=== PATIENT | male | born 1970 | race Caucasian/White ===

== ENCOUNTER 2024-09-13 20:53 | Emergency (ER) | payer BC, SELFPAY ==
[2024-09-13] VITALS (7 sets, daily range): BP systolic 139–152; BP diastolic 83–89; PULSE 54–66; RESP 28; TEMP 35.8; O2SAT 92–100; BMI 29.2
--- OUTSIDE RECORDS SUMMARY | 2024-09-13 20:55 | XMS_ITS | Clinical Summary ---
Author Organization [employer] [facility] [employer] [facility] Address [place], [place] [address] Care Team Providers Care Staff Interpreter Name Role Phone Jose Sanchez MD Primary Care Provider Allergies Active Allergy Reactions Criticality Noted Date Comments Lisinopril Cough 02/28/2020 Varicella-Zoster [id number] (Pf) Other - Describe In Comment Field 08/19/2022 Sick for two days Medications multivitamin (MVI) tablet Take 1 tablet by mouth once daily. 0 07/29/2020 Active nitroglycerin (NITROSTAT) 0.4 mg sublingual tabletIndicatio ns:ASHD (arteriosclerot ic heart disease) Place 1 tablet under the tongue every 5 minutes if needed. 25 tablet. 11 07/29/2020 Active aspirin chewable 81 mg chewable tabletIndicatio ns:ASHD (arteriosclerot ic heart disease) CHEW 1 TABLET (81 MG) BY MOUTH ONCE DAILY. 90 Tablet 3 07/29/2023 Active atorvastatin (LIPITOR) 80 mg tabletIndicatio ns:ASHD (arteriosclerot ic heart disease) Take 1 Tablet (80 mg) by mouth at bedtime. 90 Tablet 3 09/22/2023 Active losartan (COZAAR) 50 mg tabletIndicatio ns:Benign essential HTN,ASHD (arteriosclerot ic heart disease) Take 1 Tablet (50 mg) by mouth once daily. 90 Tablet 3 09/22/2023 Active metoprolol succinate (TOPROL XL) 25 mg Sustained-Relea se tabletIndicatio ns:ASHD (arteriosclerot ic heart disease),Hypert ension Take 1 Tablet (25 mg) by mouth once daily. 90 Tablet 3 09/22/2023 Active omeprazole (PRILOSEC) 20 mg Delayed-Release capsuleIndicati ons:Chronic GERD Take 1 Capsule (20 mg) by mouth once daily before a meal. 90 Capsule 3 09/22/2023 Active Active Problems Problem Noted Date Diagnosed Date Encounter for diagnostic col onoscopy due to change in bowel habits 11/07/2023 CAD: mLAD JONATHAN, 06/201907/02/2019 GERD (gastroesophageal reflux disease) 8 Prediabetes Obesity Essential hypertension Resolved Problems Problem Noted Date Diagnosed Date Resolved Date CAD (coronary artery disease) 06/29/2019 08/12/2021 Overview (08/12/2021): JONATHAN to mid-LAD. EF normal. GERD (gastroesophageal reflux disease) 06/12/2008 06/05/2019 Peptic ulcer, unspecified si te, unspecified as acute or chronic, without mention of hemorrhage, perforation, or obstruction 06/12/2008 06/05/2019 Overview (06/12/2008): Approximately 1997 No sequelae Encounters Date Type Department Care Team Description 08/20/2024 Telephone [facility] [address] [place] [address] Julio César Rice DPM [employer] (Custom orthotics-added metatarsal pads) 07/23/2024 Telephone [facility] [address] [place] [address] Julio César Rice [facility] [employer] (Custom orthotics ) from Last 3 Months Immunizations Name Administration Dates Next Due COVID-19 VACCINE SPIKEVAX (M ODERNA 50MCG/0.5ML) 12YO+ PFS 06/17/2023 DTaP 04/02/1975 Influenza, IIV4 06/19/2021,06/12/2020,06/11/2019 Influenza,CCIIV4 PRESERV FREE 06/17/2023, 022 Polio Virus, Unspecified 04/02/1975 Td (Age >=7 Years) 02/11/1982 Td, Preservative Free (age >= 7 Years) 9 Tdap 10/27/2007 Zoster (Shingrix-RZV, recombinant) 08/12/2021 Family History Medical History Relation Name Comments Hypertension Father Other Maternal Grandmother Crohn's Disease Other Maternal Uncle Crohn's Disea se Heart Disease Neg. 1 Cancer-colon Neg. 2 Cancer-prostate No Family History Diabetes No Family History Relation Name Status Comments Brother Alive Father Alive Maternal Grandmother Maternal Uncle Mother Alive Neg. 1 Neg. 2 Sister Alive Social History Tobacco Use Types Packs/Day Years Used Date Smoking Tobacco: Never Smokeless Tobacco: Never Tobacco Cessation:Counseling Given: Yes Alcohol Use Standard Drinks/Week Comments Yes 0 (1 standard drink = 0.6 oz pur e alcohol) [facility] Utilities Answer Date Recorded Do you have trouble paying f or utilities (for example, heat, electricity, water, phone)? Yes 09/22/2023 PHQ-2 Answer Date Recorded PHQ-2 TOTAL SCORE 0 08/19/2022 Social Connections Answer Date Recorded Do you often feel lonely or isolated from those around you? 0 09/22/2023 Financial Resource Strain Answer Date R ecorded Difficulty of Paying Living Expenses 3 09/22/2023 Difficulty of Paying Living Expenses Not on file 09/22/2023 Food Insecurity Answer Date Recorded Do you worry your food will run out before you are able to buy more? 1 09/22/2023 Transportation Needs Answer Date Record ed Does lack of transportation keep you from medica l appointments? 1 09/22/2023 Does lack of transportation keep you from work, meetings or getting things that you need? 1 09/22/2023 Housing Stability Answer Date Recorded What is your housing situation today? 1 09/22/2023 Sex and Gender Information Value Date Recorded Sex Assigned at Not on file Legal Sex Male 5:18 AM HOME VISITOR Gender Identity Not on file Sexual Orientation Not on file 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 on file Not on file Obstetrics History Last Filed Vital Signs Vital Sign Reading Time Taken Comments Blood Pressure 135/74 06/12/2024 3:22 PM CDT tow er Pulse 63 06/12/2024 3:22 PM CDT Temperature 36.6 C (97.8 F) 11/07/2023 12:24 PM HOME VISITOR Respiratory Rate 16 11/07/2023 2:45 PM HOME VISITOR Oxygen Saturation 98% 06/12/2024 3:22 PM CDT Inhaled Oxygen Concentration - - Weight 111.1 kg (245 lb) 06/12/2024 3:22 PM CDT Height 195.6 cm (6' 5) 11/07/2023 12:24 PM HOME VISITOR Body Mass Index 29.05 11/07/2023 12:24 PM HOME VISITOR Plan of Treatment Upcoming Encounters Date Type Department Care Team (Late st Contact Info) Description 11/27/2024 9:00 AM CDT Office Visit [facility] [address] [place] [phone] Nicolas Bustos MD [address] [place] [id number] Health Maintenance Due Date Last Done Comments Pneumococcal series for age 50+ (1 of 2 - PCV) 1989 Zoster (shingles) series for age 50+ (2 of 2) 10/07/2021 08/12/2021 Depression screening for age 12+ 08/19/2023 08/19/2022, 08/12/2021, 08/12/2021, Additional history exists BMI (ht and wt on same day) for age 18+ 10/15/2023 10/15/2022, 08/19/2022, 08/12/2021, Additional history exists COVID-19 vaccine series ( season) 2024 06/17/2023, 05/22/2022, 12/05/2021, Additional history exists Influenza for age 50-64 05/06/2024 06/17/20 23, 05/22/2022, 06/19/2021, Additional history exists Colonoscopy through age 75 05/09/2024 11/07/2023 Lipids for age 45-75 09/22/2028 09/22/2023, 08/19/2022, 08/12/2021, Additional history exists Tetanus booster 06/11/2029 06/11/2019, 10/07, 02/11/1982 Tdap Completed 10/27/2007 HIV for age 15-65 Completed 08/19/2022 Hepatitis C screening for ag e 18-79 Completed 08/19/2022 Procedures Procedure Name Priority Date/Time Associated Diagnosis Comments COLONOSCOPY 11/07/2023 1:16 PM HOME VISITOR LIPID PANEL W REFLEX MEASURED LDL Routine 09/22/2023 2:48 PM HOME VISITOR Hyperlipidemia, unspecified hyperlipidemia type ANTI HIV 1/2 Routine 08/19/2022 3:26 PM HOME VISITOR Encounter for screening for HIV ANTI HCV Routine 08/19/2022 3:26 PM HOME VISITOR Need for hepatitis C screening test from Last 3 Months or Most Recently Relevant to Health Maintenance Results * COLONOSCOPY (11/07/2023 1:16 PM HOME VISITOR) 11/07/2023 1:16 PM HOME VISITOR Narrative Transcriptions Batool Riley DO - 11/07/2023 2:19 PM CST Patient Name: Jeremy Lundberg Procedure Date: 11/07/2023 Gender: Male Date of : 1970 Admit Type: Ambulatory Procedure: Colonoscopy Proceduralist: Batool Riley MD Referring MD: Jose Sanchez Indications/Pre-Op Diagnosis: Screening for colorectal malignant neoplasmdue to positive fecal immunochemical test Medications: Propofol per Anesthesia, MonitoredAnesthesia Care Procedure Description: The patient had risks, benefits and alternatives explained to andgave informed consent. The patient had a stable cardiopulmonary status and judged an adequate candidate for conscious sedation. The endoscope [id number] was passed through the anus andadvanced to the cecum, identified by appendiceal orifice and ileocecal valve.The colonoscopy was performed without difficulty. The patient toleratedthe procedure well. The quality of the bowel preparation was excellent.The ileocecal valve, appendiceal orifice, and rectum were photographed. Complications: No immediate complications. Estimated Blood Loss & Specimen: Estimated blood loss: none. Specimen collected - None Findings: The perianal and digital rectal examinations were normal. Pertinent negatives include normal sphincter tone, no palpable rectal lesions, normal prostate (size, shape, and consistency), no anal lesion or abnormality and normal stool Hemoccult. A few small-mouthed diverticula were found in the sigmoid colon. Non-bleeding internal hemorrhoids were found during retroflexion and during endoscopy. The hemorrhoids were moderate and Grade II(internal hemorrhoids that prolapse but reduce spontaneously). The exam was otherwise without abnormality on direct and retroflexion views. Impressions/Post-Op Diagnosis: - Diverticulosis in the sigmoid colon. - Non-bleeding internal hemorrhoids. - The examination was otherwise normal on direct and retroflexionviews. - No specimens collected. Recommendation: - Patient has a contact number available for emergencies. The signsand symptoms of potential delayed complications were discussed with the patient. Return to normal activities tomorrow. Written discharge instructions were provided to the patient. - Discharge patient to home (ambulatory). - Resume previous diet. - Continue present medications. - Repeat colonoscopy in 10 years for screening purposes. Batool Riley MD 11/07/2023 2:19:14 PM This report has been signed electronically. Note Initiated On: 11/07/2023 1:16 PM us Batool Riley DO PROCEDURE ORD Final Res ult * LIPID PANEL W REFLEX MEASURED LDL (09/22/2023 2:48 PM HOME VISITOR) Pathologist [facility] CHOLESTEROL,TOTAL 155 100 - 199 mg/dL 09/22/2023 9:36 PM HOME VISITOR [facility] Comment: Cholesterol, Total Reference Ranges Desirable <200 mg/dL Borderline 200-239 mg/dL High >=240 mg/dL TRIGLYCERIDES 51 <150 mg/dL 09/22/2023 9:36 PM HOME VISITOR [facility] HDL CHOLESTEROL 51 >40 mg/dL 9:36 PM HOME VISITOR [facility] NON-HDL CHOLESTEROL 104 <145 mg/dl 09/22/2023 9:36 PM HOME VISITOR [facility] CHOL/HDL RATIO 3.04 <4.50 09/22/2023 9:36 PM HOME VISITOR [facility] LDL CHOLESTEROL 94 <=130 mg/dL 09/22/2023 9:36 PM HOME VISITOR [facility] VLDL CHOLESTEROL 10 <=30 mg/dL 09/22/2023 9:36 PM HOME VISITOR [facility] PROVIDER ORDERED STATUS RANDOM 09/22/2023 9:36 PM HOME VISITOR [facility] Blood BLOOD SPECIMEN / Unknown Venipuncture / Unknown 09/22/2023 2:48 PM HOME VISITOR 09/22/2023 2:49 PM HOME VISITOR us Jose Sanchez MD CHEMISTRY Final Result [facility] [address] [place] [id number], * ANTI HCV (08/19/2022 3:26 PM HOME VISITOR) Pathologist [facility] HEPATITIS C ANTIBODY Non-React douglas Non-React douglas 08/22/2022 12:43 PM HOME VISITOR [facility] Comment:Antibodies to HCV no t detected; does not exclude the possibility of exposure to HCV. Blood BLOOD SPECIMEN / Unknown Venipuncture / Unknown 08/19/2022 3:26 PM HOME VISITOR 08/19/2022 3:28 PM HOME VISITOR us Jose aSnchez MD SEND OUTS Final Result [facility] [employer] [address] [place] [address], [place] * ANTI HIV 1/2 (08/19/2022 3:26 PM HOME VISITOR) HIV-1/HIV-2 ANTIBODY Non-Reacti ve Non-Reacti ve 08/22/2022 11:58 AM HOME VISITOR [facility] [employer] [facility] Comment:HIV-1 p24 and HIV-1/ HIV-2 Ab not detected. Blood BLOOD SPECIMEN / Unknown Venipuncture / Unknown 08/19/2022 3:26 PM HOME VISITOR 08/19/2022 3:28 PM HOME VISITOR us Jose Sanchez MD SEND OUTS Final Result [facility] [employer] [address] [place] [address], [place] from Last 3 Months or Most Recently Relevant to Health Maintenance Insurance [facility] Advance Directives * Full Code (Latest Code Status on File) Date Activated Date Inactivated Comments 11/07/2023 12:13 PM 11/07/2023 5:04 PM Question Answer Comments Code Status Discussion: Discussed * Full Code Date Activated Date Inactivated Comments 06/29/2019 5:24 PM 06/30/2019 2:25 PM Care Teams Staff Interpreter Relationship Specialty Start Date End Date Jose Sanchez MD [address] [place] [address] PCP - General Family Practice 06/11/19
--- NOTE | 2024-09-13 21:26 | ED_ITS ---
HPI - General Adult General Chief complaint: Abdominal Pain Stated complaint: Upper abdominal/back pain Time Seen by Provider: 09/13/24 21:21 Source: patient Mode of arrival: ambulatory Limitations: no limitations History of Present Illness HPI narrative: 54-year-old male presents with abdominal pain that started approximately 2-1/2 hours ago. Patient describes his pain as a diffuse across the upper part of the abdomen radiates into his back causing pain across the entire mid back. He does not feel short of breath. He has vomited multiple times. Pain had very sudden onset. Last bowel movement was this morning and was normal. Denies difficulty with urination. Denies recent fevers or chills. Past medical history significant for coronary artery disease status post stenting in 2018. He denies any intra-abdominal surgeries. No known drug allergies. Medications reviewed and updated in the chart. Related Data Home Medications ?Medication ?Instructions ?Recorded ?Confirmed aspirin 81 mg chewable tablet 1 tab PO DAILY 09/13/24 09/13/24 atorvastatin 80 mg tablet 80 mg PO QPM 09/13/24 09/13/24 losartan 50 mg tablet 50 mg PO DAILY 09/13/24 09/13/24 metoprolol succinate 25 mg 25 mg PO DAILY 09/13/24 09/13/24 tablet,extended release 24 hr omeprazole 20 mg capsule,delayed 20 mg PO DAILY 09/13/24 09/13/24 release Allergies Allergy/AdvReac Type Severity Reaction Status Date / Time No Known Drug Allergies Allergy Verified 09/13/24 21:18 Review of Systems Status of ROS: Reports: 10 or more systems reviewed and unremarkable except as noted in History and below Exam 2 Narrative: Exam Narrative: Well-nourished well-developed patient in mild distress. Patient can not seem to find a comfortable position, mildly diaphoretic. Alert and oriented. Answers questions appropriately. Patient speaks in full sentences without needing to catch his breath. HEENT: Normocephalic atraumatic. Pupils are equally round reactive to light. Extraocular muscles are intact. Conjunctivae are moist without any icterus noted. Moist mucous membranes. Posterior pharynx is normal. Neck is soft without any lymphadenopathy or thyromegaly. No masses are appreciated. Cardiovascular: Heart is regular rate and rhythm S1 and S2 are present without any murmurs. Lungs: Clear to auscultation bilaterally no wheezes rhonchi or rales are appreciated. Patient takes deep breaths without any discomfort. Abdomen: Soft and nondistended. Patient has diffuse tenderness however, areas that are most tender are the epigastric and the left upper quadrant. He has hypoactive bowel sounds. Some guarding. Extremities: Bilateral lower extremities are without edema. Normal DP and PT pulses. Skin: Well perfused without any obvious rashes. Const: Vital Signs, click to edit/add: Vital Signs - 24 hr 09/13/24 21:11 09/13/24 21:25 09/13/24 22:15 Temperature 96.5 F L Pulse Rate 57 L Pulse Rate [Pulse Oximeter] 54 L Respiratory Rate 28 H Blood Pressure [Ri ght Upper Arm] 152/84 H Pulse Oximetry 100 97 93 Oxygen Delivery Me thod Room Air Course Course ED Course: Differential diagnosis at this time is broad and includes aortic dissection, ischemic bowel, small-bowel obstruction, nephrolithiasis, cholelithiasis, pancreatitis, pyelonephritis, gastroenteritis. Abdominal CT does not show any acute pathology that would cause his acute pain in the but does show 3.4 cm mass at the renal midpole concerning for renal cell carcinoma. CBC shows an elevated white cell count of 14.8. With 85.3% neutrophils. Normal lactate. Normal troponin. Chemistries are normal. LFTs are slightly elevated with an AST of 52 and ALT of 78, normal alkaline phosphatase. Normal CRP. Normal lipase. EKG, read by me, shows sinus bradycardia with a pulse of 49. No ischemic changes. Patient received 500 mL of normal saline, IV Zofran and 2 mg of IV morphine. His abdominal pain subsided completely. He was still having some mild back pain. He did not have any vomiting while he was here and his vital signs normalized. Discussed with patient that I had no reason for his acute abdominal discomfort. We also discussed the renal mass found. Vital Signs Vital signs: Initial Vital Signs Temperature 96.5 F L 09/13/24 21:11 Temperature Source Axillary 09/13/24 21:11 Pulse Rate 54 L 09/13/24 21:11 Respiratory Rate 28 H 09/13/24 21:11 Blood Pressure 152/84 H 09/13/24 21:11 Blood Pressure Mean 106 H 09/13/24 21:11 Blood Pressure Position Sitting 09/13/24 21:11 Pulse Oximetry 100 09/13/24 21:11 Oxygen Delivery Method Room Air 09/13/24 21:11 Vital Signs Temperature 96.5 F L 09/13/24 21:11 Pulse Rate 54 L 09/13/24 21:11 Respiratory Rate 28 H 09/13/24 21:11 Blood Pressure 152/84 H 09/13/24 21:11 Pulse Oximetry 100 09/13/24 21:11 Oxygen Delivery Method Room Air 09/13/24 21:11 Temperature 96.5 F L 09/13/24 21:11 Pulse Rate 57 L 09/13/24 22:15 Respiratory Rate 28 H 09/13/24 21:11 Blood Pressure 152/84 H 09/13/24 21:11 Pulse Oximetry 93 09/13/24 22:15 Oxygen Delivery Method Room Air 09/13/24 21:11 Medications Administered Medications: Discontinued Medications Generic Name Dose Route Start Last Admin Trade Name Freq PRN Reason Stop Dose Admin Sodium Chloride 500 mls @ 500 mls/hr 09/13/24 21:25 09/13/24 21:34 0.9 % Sodium Chloride 500 Ml IV 09/13/24 22:24 500 mls/hr .Q1H ONE Administration Morphine Sulfate 2 mg 09/13/24 21:25 09/13/24 21:36 Morphine 2 Mg/Ml Inj IVP 09/13/24 21:26 2 mg ONCE ONE Administration Ondansetron HCl 4 mg 09/13/24 21:25 09/13/24 21:33 Ondansetron 2 Mg/Ml Inj IVP 09/13/24 21:26 4 mg ONCE ONE Administration Medical Decision Making [facility] Narrative Medical decision making narrative: 54-year-old male with acute vomiting abdominal pain, etiology unclear. We discussed frequent hydration with small amounts of fluid throughout the day. Will send home with some Zofran to take as needed. If he develops worsening pain, fever or inability to keep anything down recommend he return to the ER. Discussed renal mass found on CT scan. Patient will follow-up with primary care provider for next steps. Lab Data Lab results reviewed: Yes I reviewed the patient's lab results Labs: Lab Results 09/13/24 09/13/24 Range/Units 21:26 21:30 WBC 14.86 H (4.50-11.00) K/uL RBC 4.98 (4.30-5.90) m/uL Hgb 15.8 (13.5-17.5) gm/dL Hct 46.1 (37.0-53.0) % MCV 93 (80-100) fL MCH 32 (26-34) pg MCHC 34 (32-36) gm/dL RDW Coeff of Bonnie 12.4 (11.5-15.5) % Plt Count 203 (140-440) K/uL Neut % (Auto) 85.3 H (42.0-72.0) % Lymph % (Auto) 8.7 L (20-44) % Lake % (Auto) 4.8 (0.0-11.0) % Eos % (Auto) 0.7 (0.0-7.0) % Baso % (Auto) 0.2 (0.0-3.0) % Neut # (Auto) 12.70 H (1.7-7.0) K/uL Lymph # (Auto) 1.30 (0.90-2.90) K/uL Lake # (Auto) 0.70 (0.00-0.90) K/UL Eos # (Auto) 0.10 (0.00-0.50) K/uL Baso # (Auto) 0.00 (0.00-0.30) K/uL Abs Immat Gran (auto) 0.00 (0.00-0.30) K/uL Imm/Tot Granulo (auto) 0.3 % Sodium 137 (135-149) mmol/L Potassium 3.7 (3.6-5.1) mmol/L Chloride 104 (96-114) mmol/L Carbon Dioxide 24 (20-32) mmol/L Anion Gap 9 (7-15) mEq/L BUN 27 (7-30) mg/dL Creatinine 1.0 (0.5-1.5) mg/dL Estimated Creat Clear 103.68 Estimated GFR 89 ml/min Glucose 150 H (60-115) mg/dL Lactate 1.4 (0.5-1.9) mmol/L Calcium 9.2 (8.4-10.6) mg/dL Total Bilirubin 0.8 (0.1-1.5) mg/dL Direct Bilirubin 0.2 (0.0-0.5) mg/dL AST 52 H (12-35) U/L ALT 78 H (4-50) U/L Alkaline Phosphatase 82 (40-150) U/L C-Reactive Protein < 0.5 L (0.5-1.0) mg/dL Total Protein 7.4 (6.0-8.3) g/dL Albumin 4.5 (3.3-5.0) g/dL Lipase 224 (23-300) U/L POC Troponin I 0.00 L (0.01-0.04) ng/ml Imaging Data CT Chest/Ab/Pelvis: Attestation: I have reviewed the pertinent imaging results. Radiologist's impression: CT chest without contrast, and CTA chest, abdomen and pelvis acquired with 95 cc Isovue 370 IV contrast, dissection protocol. 2D and 3D MIP images for post-processing were performed and interpreted on an independent workstation, and 3D images were permanently archived. COMPARISON: None. FINDINGS: CHEST: Cardiovascular structures: The unenhanced images demonstrate no evidence of aortic intramural thrombus. Thoracic aorta is normal in caliber without evidence of dissection. Heart size is normal. Main pulmonary artery is normal in caliber. Severe coronary artery calcifications of the LAD. Mediastinum and umair: No mass or adenopathy. Lungs and pleura: 4 mm triangular-shaped nodule along the right minor fissure (series 6, image 113), likely an intrapulmonary lymph node. No acute infiltrates. No pleural effusions or pneumothorax. Chest wall and axilla: No mass or adenopathy. Bones: Unremarkable for age. ABDOMEN AND PELVIS: Liver: Unremarkable. Gallbladder and bile ducts: Unremarkable. Spleen: Unremarkable. Adrenal glands: Unremarkable. Pancreas: Unremarkable. Kidneys: Left superior pole cyst. Heterogeneous enhancing mass in the left midpole measuring 3.4 cm. No stones or hydronephrosis. GI tract: Unremarkable. Lymph nodes: Unremarkable. Vascular structures: Abdominal aorta is normal in caliber without evidence of dissection. Mesenteric arteries are patent. Miscellaneous: Unremarkable. No free air or significant free fluid. Pelvic Organs: Prostatomegaly. Bones: Degenerative changes. IMPRESSION: 1. No evidence of acute aortic syndrome. 2. 3.4 cm heterogeneous enhancing mass in the left renal midpole, highly suspicious for renal cell carcinoma. 3. Severe coronary artery calcifications of the LAD. ECG Data Attestation: I personally reviewed and interpreted this ECG as follows: Discharge Plan Discharge Clinical Impression: Vomiting, Kidney mass, Abdominal pain Patient Disposition: Home, Self-Care Condition: Stable Additional Instructions: Reason for your abdominal pain and vomiting is unclear today. Many things can cause of this but nothing obvious was found during your workup today. Recommend that you try to take small sips of fluids frequently throughout the day. You will also be sent home with Zofran which is the medicine you received here today, that helped with nausea and vomiting. If your pain worsens, you develop a fever or you cannot stop vomiting, then you should return to the ER. Unfortunately, we did see a small mass on your left kidney that is concerning for cancer. You should follow-up with your primary care provider within the next few days to discuss next steps. Ten tablets of Zofran sent to [facility]. Prescriptions: No Action losartan 50 mg tablet 50 mg PO DAILY atorvastatin 80 mg tablet 80 mg PO QPM omeprazole 20 mg capsule,delayed release(DR/EC) 20 mg PO DAILY aspirin 81 mg tablet,chewable 1 tab PO DAILY metoprolol succinate 25 mg tablet extended release 24 hr 25 mg PO DAILY Follow Up/Referrals: Warren Lucero MD [Primary Care Provider] - Stand Alone Forms: [employer] Info Instructions
--- NOTE | 2024-09-13 21:28 | CRLHL7_ITS ---
For Patients: As a result of the 21st Century Cures Act, medical imaging exams and procedure reports are released immediately into your electronic medical record. You may view this report before your referring provider. If you have questions, please contact your health care provider. INDICATION: Diffuse pain. Abdominal pain radiating to back. TECHNIQUE: CT chest without contrast, and CTA chest, abdomen and pelvis acquired with 95 cc Isovue 370 IV contrast, dissection protocol. 2D and 3D MIP images for post-processing were performed and interpreted on an independent workstation, and 3D images were permanently archived. COMPARISON: None. FINDINGS: CHEST: Cardiovascular structures: The unenhanced images demonstrate no evidence of aortic intramural thrombus. Thoracic aorta is normal in caliber without evidence of dissection. Heart size is normal. Main pulmonary artery is normal in caliber. Severe coronary artery calcifications of the LAD. Mediastinum and umair: No mass or adenopathy. Lungs and pleura: 4 mm triangular-shaped nodule along the right minor fissure (series 6, image 113), likely an intrapulmonary lymph node. No acute infiltrates. No pleural effusions or pneumothorax. Chest wall and axilla: No mass or adenopathy. Bones: Unremarkable for age. ABDOMEN AND PELVIS: Liver: Unremarkable. Gallbladder and bile ducts: Unremarkable. Spleen: Unremarkable. Adrenal glands: Unremarkable. Pancreas: Unremarkable. Kidneys: Left superior pole cyst. Heterogeneous enhancing mass in the left midpole measuring 3.4 cm. No stones or hydronephrosis. GI tract: Unremarkable. Lymph nodes: Unremarkable. Vascular structures: Abdominal aorta is normal in caliber without evidence of dissection. Mesenteric arteries are patent. Miscellaneous: Unremarkable. No free air or significant free fluid. Pelvic Organs: Prostatomegaly. Bones: Degenerative changes. IMPRESSION: 1. No evidence of acute aortic syndrome. 2. 3.4 cm heterogeneous enhancing mass in the left renal midpole, highly suspicious for renal cell carcinoma. 3. Severe coronary artery calcifications of the LAD. Please note that all CT scans at this facility use dose modulation, iterative reconstruction, and/or weight-based dosing when appropriate to reduce radiation dose to as low as reasonably achievable. Dictated by Mikhail Zuñiga MD @ 09/13/2024 10:05:56 PM (Electronically Signed)
[2024-09-13] MEDS: ONDANSETRON 2 MG/ML inj 4 MG IVP (21:33)
[2024-09-13] MEDS: 0.9 % SODIUM CHLORIDE 500 ML 500 ML IV (21:34)
[2024-09-13] MEDS: MORPHINE 2 MG/ML inj IVP (21:36)
[2024-09-13 21:43] LABS: Lactate* 1.4 mmol/L (0.5-1.9)
[2024-09-13 21:44] LABS: Basophils Percent Auto 0.2 % (0.0-3.0); Eosinophils Percent Auto 0.7 % (0.0-7.0); Hematocrit 46.1 % (37.0-53.0); Hemoglobin* 15.8 gm/dL (13.5-17.5); Immature Granulocytes Pct Auto 0.3 %; Lymphocytes Percent Auto 8.7 % (20-44); Mean Corpuscular HGB Conc 34 gm/dL (32-36); Mean Corpuscular Hemoglobin 32 pg (26-34); Mean Corpuscular Volume 93 fL (80-100); Monocytes Percent Auto 4.8 % (0.0-11.0); Neutrophils Percent Auto 85.3 % (42.0-72.0); Platelet Count* 203 K/uL (140-440); RDW Coefficient of Variation % 12.4 % (11.5-15.5); Red Blood Count 4.98 m/uL (4.30-5.90); White Blood Count* 14.86 K/uL (4.50-11.00)
[2024-09-13 21:45] LABS: Slide Review Reflex No
[2024-09-13 22:04] LABS: Albumin* 4.5 g/dL (3.3-5.0); Chloride* 104 mmol/L (96-114)
[2024-09-13 22:05] LABS: Potassium* 3.7 mmol/L (3.6-5.1); Sodium* 137 mmol/L (135-149)
[2024-09-13 22:07] LABS: Est. Creatinine Clearance* 103.68; Estimated Glomerular Filt Rate 89 ml/min
[2024-09-13 22:08] LABS: Alanine Aminotransferase* 78 U/L (4-50); Alkaline Phosphatase* 82 U/L (40-150); Anion Gap 9 mEq/L (7-15); Aspartate Amino Transferase* 52 U/L (12-35); Bilirubin Direct* 0.2 mg/dL (0.0-0.5); Bilirubin Total* 0.8 mg/dL (0.1-1.5); Blood Urea Nitrogen* 27 mg/dL (7-30); Calcium* 9.2 mg/dL (8.4-10.6); Carbon Dioxide* 24 mmol/L (20-32); Glucose* 150 mg/dL (60-115); Lipase* 224 U/L (23-300); Total Protein* 7.4 g/dL (6.0-8.3)
[2024-09-13 22:17] LABS: C Reactive Protein* < 0.5 mg/dL (0.5-1.0)
[2024-09-13 23:01] LABS: Appearance Urine Clear (Clear); Bilirubin Urine Negative (Negative); Blood Urine Negative (Negative); Color Urine Yellow (Yellow); Glucose Urine Negative (Negative); Ketones Urine 1+ (Negative); Leukocyte Esterase Urine Negative (Negative); Nitrite Urine Negative (Negative); Protein Urine Negative (Negative); Urobilinogen Urine 0.2 (0.2-1.0)
[2024-09-13 23:20] LABS: RBC Urine 0-2 (0-2); Squamous Epithelial Cell Urine Few (None-Few); WBC Urine 0-2 (0-5)
--- OUTSIDE RECORDS SUMMARY | 2024-09-13 23:20 | XMS_ITS | Clinical Summary ---
Author Organization [employer] [facility] Address [place], [place] [address] Care Team Providers Care Wooden Frame Builder Name Role Phone Jose Sanchez MD Primary [...] Type Department Care Team Description 08/20/2024 Telephone [facility] [[email or web address] [address] [place] [address] Julio César Rice DPM [employer] (Custom orthotics-added metatarsal pads) 07/23/2024 Telephone [facility] [[email or web address]] [address] [place] [address] Julio César Rice DPCarlton [employer] (Custom [...] drink = 0.6 oz pur e alcohol) [facility] Utilities Answer Date Recorded Do you [...] on file Legal Sex Male 5:18 AM DAY CARE DIRECTOR Gender Identity Not on file Sexual Orientation Not on file 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 on file Not on file Obstetrics History Last Filed Vital Signs Vital Sign Reading Time Taken Comments Blood Pressure 135/74 06/12/2024 3:22 PM CDT tow er Pulse 63 06/12/2024 3:22 PM CDT Temperature 36.6 C (97.8 F) 11/07/2023 12:24 PM DAY CARE DIRECTOR Respiratory Rate 16 11/07/2023 2:45 PM DAY CARE DIRECTOR Oxygen Saturation 98% 06/12/2024 3:22 PM CDT Inhaled Oxygen Concentration - - Weight 111.1 kg (245 lb) 06/12/2024 3:22 PM CDT Height 195.6 cm (6' 5) 11/07/2023 12:24 PM DAY CARE DIRECTOR Body Mass Index 29.05 11/07/2023 12:24 PM DAY CARE DIRECTOR Plan of Treatment Upcoming Encounters Date Type Department Care Team (Late st Contact Info) Description 11/27/2024 9:00 AM CDT Office Visit [facility] [address] [place] [id number] Nicolas Bustos MD [address] [place] [id number] Health Maintenance Due Date Last Done [...] Associated Diagnosis Comments COLONOSCOPY 11/07/2023 1:16 PM DAY CARE DIRECTOR LIPID PANEL W REFLEX MEASURED LDL Routine 09/22/2023 2:48 PM DAY CARE DIRECTOR Hyperlipidemia, unspecified hyperlipidemia type ANTI HIV 1/2 Routine 08/19/2022 3:26 PM DAY CARE DIRECTOR Encounter for screening for HIV ANTI HCV Routine 08/19/2022 3:26 PM DAY CARE DIRECTOR Need for hepatitis C screening test from Last 3 Months or Most Recently Relevant to Health Maintenance Results * COLONOSCOPY (11/07/2023 1:16 PM DAY CARE DIRECTOR) 11/07/2023 1:16 PM DAY CARE DIRECTOR Narrative Transcriptions Batool Riley DO - 11/07/2023 [...] adequate candidate for conscious sedation. The endoscope [id number] was passed through the anus andadvanced to [...] W REFLEX MEASURED LDL (09/22/2023 2:48 PM DAY CARE DIRECTOR) Pathologist [facility] CHOLESTEROL,TOTAL 155 100 - 199 mg/dL 09/22/2023 9:36 PM DAY CARE DIRECTOR [facility] Comment: Cholesterol, Total Reference Ranges Desirable <200 mg/dL Borderline 200-239 mg/dL High >=240 mg/dL TRIGLYCERIDES 51 <150 mg/dL 09/22/2023 9:36 PM DAY CARE DIRECTOR [facility] HDL CHOLESTEROL 51 >40 mg/dL 9:36 PM DAY CARE DIRECTOR [facility] NON-HDL CHOLESTEROL 104 <145 mg/dl 09/22/2023 9:36 PM DAY CARE DIRECTOR [facility] CHOL/HDL RATIO 3.04 <4.50 09/22/2023 9:36 PM DAY CARE DIRECTOR [facility] LDL CHOLESTEROL 94 <=130 mg/dL 09/22/2023 9:36 PM DAY CARE DIRECTOR [facility] VLDL CHOLESTEROL 10 <=30 mg/dL 09/22/2023 9:36 PM DAY CARE DIRECTOR [facility] PROVIDER ORDERED STATUS RANDOM 09/22/2023 9:36 PM DAY CARE DIRECTOR [facility] Blood BLOOD SPECIMEN / Unknown Venipuncture / Unknown 09/22/2023 2:48 PM DAY CARE DIRECTOR 09/22/2023 2:49 PM DAY CARE DIRECTOR us Jose Sanchez MD CHEMISTRY Final Result [facility] [address] [place] [id number], * ANTI HCV (08/19/2022 3:26 PM DAY CARE DIRECTOR) Pathologist [facility] HEPATITIS C ANTIBODY Non-React douglas Non-React douglas 08/22/2022 12:43 PM DAY CARE DIRECTOR [facility] Comment:Antibodies to HCV no t detected; does not exclude the possibility of exposure to HCV. Blood BLOOD SPECIMEN / Unknown Venipuncture / Unknown 08/19/2022 3:26 PM DAY CARE DIRECTOR 08/19/2022 3:28 PM DAY CARE DIRECTOR us Jose Sanchez MD SEND OUTS Final Result [facility] [address] [place] [address], [place] * ANTI HIV 1/2 (08/19/2022 3:26 PM DAY CARE DIRECTOR) HIV-1/HIV-2 ANTIBODY Non-Reacti ve Non-Reacti ve 08/22/2022 11:58 AM DAY CARE DIRECTOR [email or web address] Comment:HIV-1 p24 and HIV-1/ HIV-2 Ab not detected. Blood BLOOD SPECIMEN / Unknown Venipuncture / Unknown 08/19/2022 3:26 PM DAY CARE DIRECTOR 08/19/2022 3:28 PM DAY CARE DIRECTOR us Jose Sanchez MD SEND OUTS Final Result [facility] [address] [place] [address], [place] from Last 3 Months or Most Recently Relevant to Health Maintenance Insurance [facility] Advance Directives * Full Code (Latest Code Status on File) Date Activated Date Inactivated Comments 11/07/2023 12:13 PM 11/07/2023 5:04 PM Question Answer Comments Code Status Discussion: Discussed * Full Code Date Activated Date Inactivated Comments 06/29/2019 5:24 PM 06/30/2019 2:25 PM Care Teams Wooden Frame Builder Relationship Specialty Start Date End Date Jose Sanchez MD [address] [place] [address] PCP - General Family Practice 06/11/19
== END 2024-09-13 23:15 | disposition home or self-care (01) ==
LOC: ED 23:19
PROVIDERS: Emergency Provider Family Medicine; PCP Family Medicine
DX: R11.10 Vomiting, unspecified (principal); R10.9 Unspecified abdominal pain; N28.89 Other specified disorders of kidney and ureter
CPT/HCPCS: 36415; 71275; 74174; 80048; 80076; 81001; 83605; 83690; 84484; 85025; 86140; 87086; 93005; 94761; 96374; 96375; 99284; 99285; J2270; J2405; J7030; Q9967

== ENCOUNTER 2024-10-30 08:41 | Outpatient (CLI) | payer BC, SELFPAY ==
[2024-10-30 09:20] LABS: Basophils Absolute Auto 0.03 K/uL (0.00-0.30); Basophils Percent Auto 0.4 % (0.0-3.0); Eosinophils Absolute Auto 0.29 K/uL (0.00-0.50); Eosinophils Percent Auto 3.6 % (0.0-7.0); Hematocrit 46.1 % (37.0-53.0); Hemoglobin* 15.4 gm/dL (13.5-17.5); Immature Granulocytes Abs Auto 0.01 K/uL (0.00-0.30); Immature Granulocytes Pct Auto 0.1 %; Lymphocytes Absolute Auto 1.67 K/uL (0.90-2.90); Lymphocytes Percent Auto 20.6 % (20-44); Mean Corpuscular HGB Conc 33 gm/dL (32-36); Mean Corpuscular Hemoglobin 32 pg (26-34); Mean Corpuscular Volume 95 fL (80-100); Neutrophils Absolute Auto 5.53 K/uL (1.7-7.0); Neutrophils Percent Auto 68.3 % (42.0-72.0); Platelet Count* 195 K/uL (140-440); RDW Coefficient of Variation % 12.1 % (11.5-15.5); Red Blood Count 4.86 m/uL (4.30-5.90)
[2024-10-30 09:27] LABS: Slide Review Reflex No
[2024-10-30 09:32] LABS: Albumin* 4.4 g/dL (3.3-5.0); Chloride* 100 mmol/L (96-114); Sodium* 136 mmol/L (135-149)
[2024-10-30 09:35] LABS: Alanine Aminotransferase* 61 U/L (4-50); Alkaline Phosphatase* 62 U/L (40-150); Anion Gap 7 mEq/L (7-15); Aspartate Amino Transferase* 46 U/L (12-35); Bilirubin Total* 0.9 mg/dL (0.1-1.5); Blood Urea Nitrogen* 26 mg/dL (7-30); Carbon Dioxide* 29 mmol/L (20-32); Estimated Glomerular Filt Rate 89 ml/min; Glucose* 100 mg/dL (60-115); Total Protein* 6.8 g/dL (6.0-8.3)
[2024-10-30 09:36] LABS: Calcium* 9.5 mg/dL (8.4-10.6)
== END 2024-10-30 08:42 | disposition home or self-care (01) ==
PROVIDERS: PCP Family Medicine; Visit Provider Urology
DX: N28.89 Other specified disorders of kidney and ureter (principal)
CPT/HCPCS: 36415; 80053; 85025